=== PATIENT | female | born 1985 | race Caucasian/White ===

== ENCOUNTER → 2021-02-15 14:36 | Outpatient (BNVA) | payer OTHER, SELFPAY | PROVIDERS: PCP Physician Assistant Medical; Visit Provider Physician Assistant ==

== ENCOUNTER → 2021-02-17 09:05 | Outpatient (BNVA) | payer OTHER, SELFPAY | PROVIDERS: PCP Physician Assistant Medical; Visit Provider Surgery ==

== ENCOUNTER 2021-02-21 09:31 | Outpatient (REF) | payer OTHER, SELFPAY ==
--- NOTE | ~2021-02-21 | XR_ITS ---
EXAMINATION: XR CHEST CLINICAL INFORMATION: Morbid obesity. COMPARISON: None TECHNIQUE: 2 views of the chest were obtained. FINDINGS: The lungs are clear. The cardiomediastinal silhouette is normal in size. There is no pleural effusion or pneumothorax. No acute osseous abnormality. XR/XR chest 2V IMPRESSION: No acute cardiopulmonary findings.
--- NOTE | 2021-02-21 09:48 | ECG_ITS ---
Test Reason : E66.01 Blood Pressure : / mmHG Vent. Rate : 072 BPM Atrial Rate : 072 BPM P-R Int : 134 ms QRS Dur : 090 ms QT Int : 430 ms P-R-T Axes : 016 027 034 degrees QTc Int : 470 ms Normal sinus rhythm Normal ECG No previous ECGs available Referred By: Kal Tsai Electronically Signed By:Musa Castillo
[2021-02-21 10:42] LABS: MANUAL DIFF FLAG NO
[2021-02-21 10:59] LABS: White Blood Count 6.9 X10*3/uL (4.8-10.8)
[2021-02-21 11:00] LABS: Basophils Percent Auto 0.3 % (0-2); Eosinophils Absolute Auto 0.1 X10*3/uL (0.0-0.4); Eosinophils Percent Auto 0.9 % (0-4); Hematocrit 42.1 % (37-47); Imm Gran Abs Auto 0.01 X10*3/uL (0.00-0.03); Imm Gran Pct Auto 0.1 % (0.0-0.4); Lymphocytes Absolute Auto 1.7 X10*3/uL (1.2-4.9); Lymphocytes Percent Auto 24.5 % (20-40); Mean Corpuscular HGB Conc 33.3 g/dl (31.0-35.0); Mean Corpuscular Volume 90.1 fL (80-98); Mean Platelet Volume 10.4 fL (9.4-12.3); Monocytes Absolute Auto 0.4 X10*3/uL (0.1-1.2); Monocytes Percent Auto 6.3 % (2-11); Neutrophils Absolute Auto 4.7 X10*3/uL (2.0-8.3); Neutrophils Percent Auto 67.9 % (45-73); Platelet Count 338 X10*3/uL (160-400); Red Blood Count 4.67 X10*6/uL (4.20-5.50)
[2021-02-21 11:01] LABS: Estimated Average Glucose 94 mg/dL; Hemoglobin A1c % 4.9 %
[2021-02-21 11:26] LABS: Alanine Aminotransferase 10 U/L (0-31); Albumin Level 4.3 g/dL (3.5-5.0); Alkaline Phosphatase 50 U/L (39-117); Anion Gap 15 (12-20); Aspartate Amino Transferase 18 U/L (5-31); Bilirubin Total 0.9 mg/dL (0.0-1.0); Blood Urea Nitrogen 13 mg/dL (9-16); C Reactive Protein 1.85 mg/dL (< or = 0.50); Calcium 9.4 mg/dL (8.4-10.2); Carbon Dioxide 23 mmol/L (22-29); Chloride 103 mmol/L (96-108); Cholesterol 241 mg/dL; Estimated Glomerular Filt Rate > 60; Glucose Random 87 mg/dL (60-115); HDL Cholesterol 44 mg/dL; Iron 123 mcg/dL (30-160); LDL Cholesterol Calculated 178 mg/dl; Percent Iron Saturation 29 % (15-50); Potassium 4.1 mmol/L (3.3-5.1); Sodium 137 mmol/L (135-145); Total Iron Binding Capacity 422 mcg/dL (228-428); Total Protein 7.2 g/dL (6.5-8.0); Triglycerides 98 mg/dL; Unsaturated Iron Binding 299 ug/dL
[2021-02-21 11:50] LABS: Ferritin 117 ng/mL (10-122); TSH reflex Free T4 0.69 uIU/mL (0.32-4.0); Vitamin D 25-OH Total 33.5 ng/mL (>30)
[2021-02-21 12:06] LABS: Folate 17.4 ng/mL (> or = 4.0); Vitamin B12 484 pg/mL (200-900)
[2021-02-22 14:31] LABS: H Pylori Breath Test NOT DETECTED (NOT DETECTED)
[2021-02-22 14:56] LABS: Calcium (PTHI) 9.2 mg/dL (8.6-10.2); PTHI 40 pg/mL (14-64)
[2021-02-23 12:01] LABS: Insulin Level Total 7.5 uIU/mL
[2021-02-24 00:46] LABS: Zinc 79 mcg/dL (60-130)
[2021-02-26 11:42] LABS: Vitamin B1 8 nmol/L (8-30)
[2021-02-26 19:01] LABS: Vitamin A 50 mcg/dL (38-98)
== END 2021-02-21 09:32 | disposition home or self-care (01) ==
LOC: HO.XRAY 09:31
PROVIDERS: PCP Physician Assistant Medical; Visit Provider Surgery
DX: E66.01 Morbid (severe) obesity due to excess calories (principal); I10 Essential (primary) hypertension
CPT/HCPCS: 36415; 71046; 80053; 80061; 82306; 82607; 82728; 82746; 83013; 83036; 83525; 83540; 83970; 84425; 84443; 84590; 84630; 85025; 86140; 93005

== ENCOUNTER → 2021-03-09 07:07 | Outpatient (BNVA) | payer OTHER, SELFPAY | PROVIDERS: PCP Physician Assistant Medical; Visit Provider Surgery ==

== ENCOUNTER 2021-03-21 09:38 | Outpatient (REF) | payer OTHER, SELFPAY ==
--- NOTE | ~2021-03-21 | US_ITS ---
EXAMINATION: US COMPLETE ABDOMEN WITH LIVER ELASTOGRAPHY CLINICAL INFORMATION: Morbid obesity due to excess calories. COMPARISON: None TECHNIQUE: Real-time imaging of the abdominal viscera. Noninvasive ultrasound liver fibrosis assessment is performed using Cisco ElastPQ point quantification shear wave elastography (pSWE) with a C5-2 MHz transducer. Multiple elastography samples are obtained. FINDINGS: PANCREAS: Normal. The visualized pancreatic head and body are normal in appearance. The remainder of the pancreas is obscured from visualization by the overlying bowel gas. ABDOMINAL AORTA: The proximal, middle, and distal aortic segments are normal in caliber. INFERIOR VENA CAVA: Visualized portions are normal. LIVER: Normal. The liver demonstrates normal size, contour and echogenicity. No focal lesion or intrahepatic biliary duct dilatation. The right lobe measures 40.1 cm in length. The left lobe measures 10.3 cm in length. Portal flow is hepatopetal. Shear wave liver elastography median stiffness is 1.34 m/s (reference: Normal median stiffness is 1.3 m/s or less). IQR/median stiffness to assess sampling precision is 0.29 (reference: Good quality data set is IQR/median stiffness of 0.15 or less). GALLBLADDER: Normal. The gallbladder is physiologically distended without evidence of stones, sludge, polyps, wall thickening or pericholecystic fluid. COMMON BILE DUCT: Normal in caliber measuring 0.3 cm in diameter. RIGHT KIDNEY: Normal. No hydronephrosis. No renal calculi or focal parenchymal lesions. The kidney measures 12.5 cm in maximum dimension. LEFT KIDNEY: Normal. No hydronephrosis. No renal calculi or focal parenchymal lesions. The kidney measures 12.4 cm in maximum dimension. SPLEEN: Normal. The spleen measures 10.7 cm in maximum dimension. FREE FLUID: None. US/US abdomen comp w elastography IMPRESSION: 1. There is mild hepatic steatosis without focal lesion. The rest of the abdominal ultrasound is unremarkable. 2. Liver Elastography: Median liver stiffness measures 1.34 m/s suggestive of high probability normal. REFERENCE: Society of Radiologists in Ultrasound Liver Stiffness Thresholds (2019): LIVER STIFFNESS THRESHOLDS: *Liver Stiffness equal or less than 1.3 m/s: High probability of being normal. *Liver Stiffness less than 1.7 m/s: In the absence of other known clinical signs, rules out compensated advanced chronic liver disease. *Liver Stiffness 1.7-2.1 m/s: Suggestive of compensated advanced chronic liver disease but need further test for confirmation. *Liver Stiffness over 2.1 m/s: Rules in compensated advanced chronic liver disease. *Liver Stiffness over 2.4 m/s: Suggestive of clinically significant portal hypertension. QUALITY OF DATA SET: *IQR/Median value equal or less than 0.15 implies a quality data set. *IQR/Median value over 0.15 implies a poor quality data set. SIGNIFICANT CHANGE FROM PRIOR EXAM: Significant change if liver stiffness measurement is 10% or greater from prior exam. OTHER CONSIDERATIONS: The stage of liver fibrosis may be overestimated in the setting of acute hepatitis, liver inflammation, elevated liver function tests, hepatic vascular congestion, obstructive cholestasis, non-fasting state, and infiltrative diseases such as amyloidosis and lymphoma. In some patients with NAFLD, the liver stiffness thresholds for compensated advanced chronic liver disease may be lower. In causes other than viral hepatitis and NAFLD, liver stiffness thresholds are not well established.
--- NOTE | ~2021-03-21 | FL_ITS ---
EXAMINATION: XR GI SERIES CLINICAL INFORMATION: Morbid obesity. COMPARISON: None TECHNIQUE: Air contrast upper GI examination. FINDINGS: There is normal apposition of the vocal cords while saying E. There is normal elevation of the soft palate while saying candy. Patient swallowed thin and thick barium. Patient had some nausea and vomiting with thick contrast. No nasopharyngeal reflux or tracheal aspiration identified. There is normal esophageal motility. No hiatal hernia. No gastroesophageal reflux present including with water siphon test. The stomach demonstrates normal distensibility without evidence of abnormal mass or ulceration. No delay in gastric emptying. The duodenal bulb and sweep appear unremarkable. FLUOROSCOPY TIME: 1.9 minutes. DAP: 20.745 Gy-cm2. NUMBER OF IMAGES: 13. FL/FL upper GI series IMPRESSION: No significant abnormality identified.
== END 2021-03-21 09:39 | disposition home or self-care (01) ==
LOC: HO.US 09:38
PROVIDERS: Visit Provider Surgery
DX: Z01.818 Encounter for other preprocedural examination (principal); E66.01 Morbid (severe) obesity due to excess calories; I10 Essential (primary) hypertension; K21.9 Gastro-esophageal reflux disease without esophagitis
CPT/HCPCS: 74240; 76705; 76981

== ENCOUNTER → 2021-03-23 08:00 | Outpatient (BNVA) | payer OTHER, SELFPAY | PROVIDERS: PCP Physician Assistant Medical; Visit Provider Dietitian, Registered | DX: E66.9 Obesity, unspecified (principal); Z68.39 Body mass index [BMI] 39.0-39.9, adult | CPT/HCPCS: 97802 ==

== ENCOUNTER → 2021-04-20 07:14 | Outpatient (BNVA) | payer OTHER, SELFPAY | PROVIDERS: PCP Physician Assistant Medical; Visit Provider Surgery ==

== ENCOUNTER → 2021-05-11 14:40 | Outpatient (BNVA) | payer OTHER, SELFPAY | PROVIDERS: PCP Physician Assistant Medical; Visit Provider Surgery ==

== ENCOUNTER 2021-05-12 08:45 | Outpatient (REF) | payer OTHER, SELFPAY ==
[2021-05-12 09:06] LABS: MANUAL DIFF FLAG NO
[2021-05-12 10:11] LABS: Estimated Average Glucose 91 mg/dL; Hemoglobin A1c % 4.8 %
[2021-05-12 10:30] LABS: Basophils Percent Auto 0.3 % (0-2); Eosinophils Percent Auto 0.6 % (0-4); Hematocrit 44.4 % (37-47); Hemoglobin 14.9 g/dl (12.0-16.0); Imm Gran Abs Auto 0.01 X10*3/uL (0.00-0.03); Imm Gran Pct Auto 0.2 % (0.0-0.4); Lymphocytes Absolute Auto 1.6 X10*3/uL (1.2-4.9); Lymphocytes Percent Auto 25.1 % (20-40); Mean Corpuscular HGB Conc 33.6 g/dl (31.0-35.0); Mean Corpuscular Volume 89.3 fL (80-98); Monocytes Absolute Auto 0.5 X10*3/uL (0.1-1.2); Monocytes Percent Auto 7.4 % (2-11); Neutrophils Absolute Auto 4.2 X10*3/uL (2.0-8.3); Neutrophils Percent Auto 66.4 % (45-73); Platelet Count 274 X10*3/uL (160-400); Red Blood Count 4.97 X10*6/uL (4.20-5.50); White Blood Count 6.4 X10*3/uL (4.8-10.8)
[2021-05-12 10:38] LABS: Alanine Aminotransferase 23 U/L (0-31); Albumin Level 4.4 g/dL (3.5-5.0); Alkaline Phosphatase 60 U/L (39-117); Anion Gap 15 (12-20); Aspartate Amino Transferase 28 U/L (5-31); Blood Urea Nitrogen 10 mg/dL (9-16); C Reactive Protein 1.05 mg/dL (< or = 0.50); Calcium 9.4 mg/dL (8.4-10.2); Carbon Dioxide 22 mmol/L (22-29); Chloride 103 mmol/L (96-108); Cholesterol 206 mg/dL; Estimated Glomerular Filt Rate > 60; Glucose Random 78 mg/dL (60-115); HDL Cholesterol 39 mg/dL; LDL Cholesterol Calculated 149 mg/dl; Potassium 4.2 mmol/L (3.3-5.1); Sodium 136 mmol/L (135-145); Triglycerides 94 mg/dL
[2021-05-12 10:42] LABS: Prothrombin Time 11.8 SEC (9.9-13.0)
[2021-05-12 10:45] LABS: Partial Thromboplastin Time 35.4 SEC (24.1-38.0)
[2021-05-12 11:00] LABS: TSH reflex Free T4 1.04 uIU/mL (0.32-4.0)
[2021-05-14 04:08] LABS: Insulin 6 uU/mL (2-29)
== END 2021-05-12 08:46 | disposition home or self-care (01) ==
LOC: HO.LAB 08:45
PROVIDERS: PCP Physician Assistant Medical; Visit Provider Surgery
DX: E66.9 Obesity, unspecified (principal); Z68.38 Body mass index [BMI] 38.0-38.9, adult
CPT/HCPCS: 36415; 80053; 80061; 83036; 83525; 84443; 85025; 85610; 85730; 86140; 86850; 86900; 86901

== ENCOUNTER → 2021-05-14 09:02 | Outpatient (BNVA) | payer OTHER, SELFPAY | PROVIDERS: PCP Physician Assistant Medical; Visit Provider Physician Assistant ==

== ENCOUNTER 2021-05-17 11:45 | Inpatient (IN) | payer OTHER, SELFPAY ==
[2021-05-14 13:32] VITALS: BMI 36.8
--- NOTE | 2021-05-15 07:42 | MHC.SHP ---
Pre-Procedural Eval Section A Date of Service: 05/15/21 The patient is an INPATIENT: Yes The History & Physical has been completed within 30 days and I have reviewed it.: Yes Section B Chief Complaint: obesity Relevant Family History (Specify if Yes): No Relevant Social History: None Present Medications: None Medical History: No relevant PMH History of Previous Operations: No relevant previous surgery Allergies: Allergies Allergy/AdvReac Type Severity Reaction Status Date / Time No Known Allergies Allergy Verified 05/14/21 13:31 Review of Systems Sugical H&P ROS: Negative: Constitution, Cardiovascular, Respiratory, Neurological, Psychiatric, Hem-Onc, Allergic/Immunologic, Gastrointestinal, Genitourinary, Musculoskeletal, Integumentary, Endocrine and Eyes/Ears/Nose/Throat Exam Surgical H&P Exam: Normal: HEENT, Normal: Heart, Normal: Lungs, Normal: Extremities, Normal: Abdomen, Normal: Skin and Normal: Neurological Plan Diagnosis/Plan: Unchanged I have reviewed the history and physical and performed a pertinent physical examination on my patient. No changes have occurred unless specified.
--- NOTE | 2021-05-16 12:16 | P.CONAN_ITS ---
Documented by User: Sho Garsia NP 05/16/21 12:17 HPI - Anesthesia Eval Consult details Narrative: 35yo F for Gastrectomy Sleeve, EGD, Poss Diaphragmatic Hernia, Poss Ventral Hernia, Poss open PMFSH Active Problems Active Problems: All Active Problems (Updated 05/14/21 @ 13:37 by Marilou Lala, RN) Hypertension (Acute) Adjustment disorder, unspecified (Acute) Obesity (Acute) BMI 39.0-39.9,adult (Acute) BMI 38.0-38.9,adult (Acute) Morbid obesity (Acute) Past Medical History Medical History (Updated 05/14/21 @ 13:37 by Marilou Lala RN) COVID-19 vaccine series completed HTN (hypertension) Morbid obesity Family History Family History (Updated 02/16/21 @ 15:23 by Rashid Hines Linda) Mother Hypertension Father Hypertension Sister No problems noted. Son No problems noted. Daughter No problems noted. Surgical History Surgical History (Updated 05/14/21 @ 13:30 by Marilou Lala RN) History of tonsillectomy Hx of section Hx of cone biopsy of cervix Hx of wisdom tooth extraction Social History Social History (Updated 02/16/21 @ 15:23 by JOSE Quiñonez) Are you a primary healthcare project manager to a significant other at home: No Do you presently have visiting nurse or other home services: No Alcohol intake: current Alcohol intake frequency: holidays/special occasions only Patient Tobacco Use Status: Never used Tobacco Use of substances other than those prescribed or required for medical reasons: No Have you been hit, kicked, punched, or otherwise hurt by someone within the past year? If so, by whom?: No Are you DNR?: No Advance Directives: No Advance Directives Information Provided: No (mailed info) Advance Directives on File: No Recently lost weight without trying: No How much weight loss: 24-33 pounds Eating poorly because of decreased appetite: No Nutrition screen score: 3 Nutrition Risks: No Nutritional Risk Patient : No FDLMP: 04/27/21 Meds Allergies Allergy/AdvReac Type Severity Reaction Status Date / Time No Known Allergies Allergy Verified 05/14/21 13:31 Home Medications Medication Instructions Recorded Confirmed Last Taken Type L norgest/E estradiol-E estrad 1 tab PO DAILY 02/16/21 05/14/21 05/11/21 History 0.15 mg-30 mcg (84)/10 mcg(7) tabs,3mos (Seasonique) Exam Exam Date and Time: May 16, 2021 1216 Height,Weight and Vital Signs: Height 5 ft 6 in Weight 103.419 kg Pertinent Lab Results Pertinent Lab Results: Laboratory Tests 05/12/21 09:00 Blood Type O Positive Antibody Screen NEGATIVE Laboratory Tests 05/12/21 05/12/21 09:00 09:00 WBC 6.4 Hgb 14.9 Hct 44.4 Plt Count 274 Sodium 136 Potassium 4.2 Chloride 103 Carbon Dioxide 22 BUN 10 Creatinine 0.66 Narrative Narrative: EKG 02/2021 Vent. Rate : 072 BPM ? ? Atrial Rate : 072 BPM ?? P-R Int : 134 ms? QRS Dur : 090 ms ? ? QT Int : 430 ms ? ? ? P-R-T Axes : 016 027 034 degrees ?? QTc Int : 470 ms ? Normal sinus rhythm Normal ECG No previous ECGs available Assessment and Plan Assessment Anesthesia Assessment: Chart Reviewed Documented by User: Cyndi Lyman MD 05/17/21 12:41 PMFSH Active Problems Active Problems: All Active Problems (Updated 05/14/21 @ 13:37 by Marilou Lala RN) Hypertension (Acute) Adjustment disorder, unspecified (Acute) Obesity (Acute). Denies h/o BERNICE BMI 39.0-39.9,adult (Acute) BMI 38.0-38.9,adult (Acute) Morbid obesity (Acute) Past Medical History Medical History (Updated 05/14/21 @ 13:37 by Marilou Lala RN) COVID-19 vaccine series completed HTN (hypertension) Morbid obesity Family History Family History (Updated 02/16/21 @ 15:23 by JOSE Quiñonez) Mother Hypertension Father Hypertension Sister No problems noted. Son No problems noted. Daughter No problems noted. Family history of problems with anesthesia: No Surgical History Surgical History (Updated 05/14/21 @ 13:30 by Marilou Lala RN) History of tonsillectomy Hx of section Hx of cone biopsy of cervix Hx of wisdom tooth extraction History of Problems with Anesthesia: No Social History Social History (Updated 02/16/21 @ 15:23 by Rashid Hines Linda) Are you a primary healthcare project manager to a significant other at home: No Do you presently have visiting nurse or other home services: No Alcohol intake: current Alcohol intake frequency: holidays/special occasions only Patient Tobacco Use Status: Never used Tobacco Use of substances other than those prescribed or required for medical reasons: No Have you been hit, kicked, punched, or otherwise hurt by someone within the past year? If so, by whom?: No Are you DNR?: No Advance Directives: No Advance Directives Information Provided: No (mailed info) Advance Directives on File: No Recently lost weight without trying: No How much weight loss: 24-33 pounds Eating poorly because of decreased appetite: No Nutrition screen score: 3 Nutrition Risks: No Nutritional Risk Patient : No FDLMP: 04/27/21 Meds Allergies Allergy/AdvReac Type Severity Reaction Status Date / Time No Known Allergies Allergy Verified 05/14/21 13:31 Home Medications Medication Instructions Recorded Confirmed Last Taken Type L norgest/E estradiol-E estrad 1 tab PO DAILY 02/16/21 05/14/21 05/11/21 History 0.15 mg-30 mcg (84)/10 mcg(7) tabs,3mos (Seasonique) Exam Height,Weight and Vital Signs: Height 5 ft 6 in Weight 103.419 kg Vital Signs Temp Pulse Resp BP Pulse Ox 05/17/21 11:25 97.9 F 88 16 158/86 H 97 Pertinent Lab Results Pertinent Lab Results: Laboratory Tests 05/12/21 09:00 Blood Type O Positive Antibody Screen NEGATIVE Laboratory Tests 05/12/21 05/12/21 09:00 09:00 WBC 6.4 Hgb 14.9 Hct 44.4 Plt Count 274 Sodium 136 Potassium 4.2 Chloride 103 Carbon Dioxide 22 BUN 10 Creatinine 0.66 Laboratory Results - last 24 hr 05/12/21 05/17/21 05/17/21 09:00 11:18 11:18 Urine Test NEGATIVE COVID-19 (RAHEEM) Negative COVID-19 Clin Com See Note Blood Type O Positive Airway Mallampati Class: II TM Dist: >3cm Neck ROM: Full Loose/Missing/Broken Teeth: Yes (1 extraction back top right) Heart: RRR Lungs: CTAB Assessment and Plan Assessment Anesthesia Assessment: Anesthesia Plan Discussed Final Anesthetic Review Family History of Problems with Anesthesia: No History of Problems with Anesthesia: No NPO: Yes ASA Class: III Final Preanesthetic Review: No Changes in Pt Med Stat, Meds/Allgs Chart Reviewed, Consent Obtained/Reviewed and Anes Risks/Benef Reviewed Patient Risk: Intermediate Procedure Risk: Intermediate Anesthetic Plan Anesthetic Plan: GA Disposition: Standard PACU and Inp. Admit - Standard Bed
[2021-05-17] VITALS (11 sets, daily range): BP systolic 140–158; BP diastolic 74–94; PULSE 65–88; RESP 12–18; TEMP 36.1–37; O2SAT 97–99
[2021-05-17] MEDS: Lactated Ringers 1,000 ML 100 ML IVCONT ×2 (11:47→16:06)
[2021-05-17] MEDS: Lactated Ringers 1,000 ML 999 ML IV (11:50)
[2021-05-17 12:00] LABS: UPreg QC Valid YES; Urine Pregnancy NEGATIVE (NEGATIVE)
[2021-05-17 12:10] LABS: COVID-19 Test Negative (Negative); IDNOW Serial# 9DD0AD1C
--- NOTE | 2021-05-17 12:46 | PM.PNGS ---
Subjective Subjective Date of Service: 05/18/21 Interval history: Patient has mild incisional pain, but was able to ambulate and use the incentive spirometer. She is tolerating phase 1 bariatric diet. Had some nausea and dry heaving earlier Physical Exam Vital Signs: Vital Signs: Last Vital Signs Temp 97.9 F 05/17/21 11:25 Pulse 88 05/17/21 11:25 Resp 16 05/17/21 11:25 BP 158/86 H 05/17/21 11:25 Pulse Ox 97 05/17/21 11:25 Body Mass Index 36.8 GI: Inspection: Yes normal to inspection and Yes incision (clean, dry and intact) Extrem: Right lower extremity: normal to inspection (no calf tenderness) Left lower extremity: normal to inspection (no calf tenderness) Procedures Date of Service Date of Service: 05/18/21 Progress Note: A&P Assessment and plan (1) Obesity: Status: Acute Assessment and Plan: s/p laparoscopic sleeve gastrectomy, lysis of adhesions repair of diaphragmatic hernia, and gastropexy Doing well Check am labs. If OK, will discharge home? (2) BMI 38.0-38.9,adult: Status: Acute (3) Hypertension: Status: Acute (4) Steatosis, liver: Status: Acute (5) S/P laparoscopic sleeve gastrectomy: Status: Acute Fall Risk Details Current Medications: Current Medications Fentanyl (Fentanyl Citrate/Pf 100 Mcg/2 Ml Vial) 25 mcg IVPUSH Q5M PRN; Protocol PRN Reason: Pain, Moderate (Pain Scale 4-6 Hydromorphone HCl (Hydromorphone Hcl 0.5 Mg/0.5 Ml Syringe) 0.25 mg IVPUSH Q5M PRN; Protocol PRN Reason: Pain, Severe (Pain Scale 7-10) Lactated Ringer's (Lr) 1,000 mls @ 100 mls/hr IVCONT .Q10H MIGUE Last Admin: 05/17/21 11:47 Dose: 100 mls/hr Documented by: Promethazine HCl 6.25 mg/ (Sodium Chloride) 50.25 mls @ 201 mls/hr IV ONCE PRN PRN Reason: Nausea and Vomiting Ondansetron HCl (Ondansetron Hcl 4 Mg/2 Ml Vial) 4 mg IVPUSH ONCE PRN PRN Reason: Nausea and Vomiting Time Spent With Patient Time: Total time spent is greater than 50% in coordination of care (as documented) at patient's floor/unit and/or counseling patient: Time with patient: less than 15 minutes Quality Stroke Does the patient have a stroke diagnosis?: No VTE Prior VTE?: No VTE Risk Level:: Surgical - moderate VTE Device Contraindication: N/A - Device Ordered VTE Drug Contraindication: Treatment Not Indicated
--- NOTE | 2021-05-17 12:48 | P.BOP_ITS ---
Brief Operative Note Date of Service: 05/17/21 Pre-op diagnosis: Severe obesity and comorbidities (see below) Post-op diagnosis: same Procedure: INITIAL PATIENT BMI ON PRESENTATION AT OUR OFFICE: 41.7 kg/m2 LAST BMI BEFORE SURGERY: 38.1 kg/m2 COMORBIDITIES: hypertension, liver steatosis The patient participated in an intensive weekly lifestyle ?intervention and exercise program during which the patient ?has lost between the initial office visit and the last preoperative visit 24.2lbs, or 9.36% of initial actual body weight. The patient met the BMI-criteria for bariatric surgery based on the BMI on initial presentation. The patient should not be penalized for achieving such weight loss because ?it is not sustainable long-term without surgical intervention and it was achieved in preparation for bariatric surgery ?under my direction and based on my published research ([email or web address] and? [email or web address]/[email or web address])47830-X/pdf ) ?that a 10% p reoperative weight loss improves long-term weight loss after surgery and reduces perioperative complications.? Insurance carriers such as [facility] have endorsed my recommendations ?and have included in their policies criteria to include a 10% preoperative weight loss requirement. PROCEDURE: Esophago-gastroscopy, laparoscopic repair of incarcerated diaphragmatic hernia, laparoscopic lysis of adhesions, laparoscopic sleeve gastrectomy and laparoscopic gastropexy INDICATIONS: This is a 35 year-old female who was electively scheduled for laparoscopic, possibly open sleeve gastrectomy. The risks and complications of the procedure were discussed with the patient in advance, particularly the possibility of ; pulmonary embolism; staple line leak; bleeding; GERD; cardiac, pulmonary, or renal complications; as well as long-term problems such as insufficient weight loss, vitamin deficiency, strictures, or ulcers. The patient understood all the risks, and was in agreement to proceed with surgery. DESCRIPTION OF PROCEDURE: After informed consent was obtained from the patient, the patient was given preoperative antibiotics, and was transferred to the operating room. After successful induction of general anesthesia, pneumatic compressive devices were placed on both lower extremities. An upper endoscopy was performed next. The oropharynx and esophagus appeared to be within normal limits. There was no diaphragmatic hernia present consistent with the findings of the preoperative upper GI. The stomach was entered. Then after all fluid and air were suctioned and the stomach was fully decompressed, the scope was withdrawn and secured in the mid esophagus. The patient was then prepped and draped in the usual sterile manner, and abdominal access was established at the right upper quadrant with the Cosmo technique. A 12 mm blunt port was inserted, and the abdomen was insufflated with CO2 to a pressure of 15 mmHg. Under direct visualization, additional ports were placed, specifically two 5 mm Versi-step ports to the left upper quadrant, and a 5 mm Versi-Step port to the right upper quadrant. 1% lidocaine plain was used to infiltrate all port sites as well as all fascia defects. Following that, the patient was placed in a steep reverse Trendelenburg position. An additional 5 mm port was placed to the right flank for the Mediflex retractor that was used to retract the left lobe of the liver. The gastro-esophageal fat pad was opened with the ultrasonic device (Thunderbeat, Olympus) and the anterior esophagus and hiatus were exposed. The angle of His was opened with the ultrasonic device the fundus of the stomach from any diaphragmatic and splenic attachments. I then opened the gastrocolic ligament between the transverse colon and the greater curvature of the stomach with the ultrasonic device to enter the lesser sac and facilitate the ligation of the short gastric vessels. I started at a mid-point along the greater curvature and using the Thunderbeat, all short gastric vessels were divided all the way to the angle of His until the left tamara was completely dissected at its entirety. I then divided the gastro-colic ligament distally to a distance of about 3-4 cm proximal to the esophagus. The stomach was then divided transversely with one Endo KEVIN-45 purple, one KEVIN- 45 orange and three KEVIN-60 articulating orange loads using the AEON stapler and loads. Every effort was made that the gastric sleeve had a tubular shape and an even caliber throughout. Once the sleeve resection was completed, the staple line of the gastric sleeve was reinforced with Hemoclips. The resected stomach was retrieved without difficulty from the Cosmo port. A gastropexy was then performed in order to prevent postoperative GERD and partial gastric volvulus. Several interrupted 2.0 Surgidac sutures were placed between the sleeve's staple line and the previously divided greater omentum and gastro-colic ligament using the Endo-Stitch device. ?An upper endoscopy was performed. There was no narrowing at the GE junction. The scope was easily advanced all the way to the pylorus which was clearly visualized. There was no narrowing anywhere and the sleeve's caliber was even throughout. The sleeve's staple line was inspected and there was no evidence of ischemia, bleeding or dehiscence. At that point the gastroscope was withdrawn from the patient?s mouth while we were decompressing the bowel and the stomach from any remaining air. I looked into the lesser sac to see how the sleeve was situating and it was situating well. There was no bleeding from the staple line, spleen, or short gastric vessels. The Mediflex retractor was removed, and the undersurface of the liver was inspected and there was no bleeding. The patient was placed in supine position. I closed the fascial defect of the 12 mm port site with a figure of eight #1 Polysorb suture. Then 100 cc 0.25 % Marcaine plain with 10 mg of Dexamethasone were used to infiltrate the fascial closure as well as all skin incisions. At this point, the abdomen was deflated, all ports were removed under direct vision, and no bleeding was noted from any of the port sites. The skin incisions were irrigated with saline and were closed with 4-0 absorbable monofilament sutures. Steri-Strips and OpSites were used to cover all incisions. The patient was extubated and was transferred in stable condition to the recovery room for further care. I was present and performed all walton parts of the procedure. Lalit was the special education assistant. There were no residents to assist with this case. Doug Tsai MD, PhD, FACS Surgeon: Kal Tsai MD Anesthesia: GETA, local and other (TAP block) Was an Mold Puller used for this Procedure?: No Mold Puller: Katheryn Cohn Estimated blood loss (mL): 10 Urine output (mL): 0 (No Howard to record) Pathology: other (Stomach) Condition: stable Disposition: PACU
--- NOTE | 2021-05-17 15:05 | P.DS_ITS ---
DS: Providers Provider Date of Service: 05/18/21 Date of admission: 05/17/21 11:45 Primary care physician: Unknown Physician DS: Diagnosis Discharge Diagnosis (1) Obesity: Status: Acute (2) BMI 38.0-38.9,adult: Status: Acute (3) Hypertension: Status: Acute (4) Steatosis, liver: Status: Acute DS: Summary Hospital Course Hospital Course: ADMITTING DIAGNOSIS: morbid obesity DISCHARGE DIAGNOSIS: same, s/p laparoscopic sleeve gastrectomy PAST SURGICAL HISTORY: section, cone biopsy PROCEDURE: upper endoscopy, laparoscopic sleeve gastrectomy and gastropexy DISCHARGE SUMMARY: History of Present Illness: The patient is a 35 year-old woman with a BMI of 41.7 kg/m2 and associated co- morbidities as described above. The patient had extensive work-up,lost 24.2 lbs preoperatively and was electively scheduled for laparoscopic, possible open sleeve gastrectomy and gastropexy. Risks and complications of the surgery were discussed with the patient in advance, particularly the possibility of , pulmonary embolism, anastomotic leak, bleeding, bowel injury, GERD, cardiac, renal or pulmonary complications. The patient understood all the risks and was in agreement with the surgical plan. Hospital Course: The patient underwent an uneventful laparoscopic sleeve gastrectomy with gastropexy on the day of admission. Postoperatively, the patient was transferred to the surgical floor. The patient received IV Acetaminophen and IV dilaudid for pain control. Patient was started on bariatric phase 1 diet POD #0. On postoperative day one, the patient was feeling well without nausea, vomiting, fevers, or tachycardia. The patient had some mild incisional pain and the abdomen was soft. On the morning of postoperative day one, the patient was continued on 1 ounce of water or ice every half hour. During the day, the patient did fairly well, having some incisional pain, but able to ambulate adequately and to tolerate liquids well. Since the patient is doing well, we decided that the patient was ready to be discharged. The patient was given instructions to follow-up with me next week and to call my office for any fever over 101, persistent abdominal pain, nausea, vomiting, GERD, symptoms of DVT such as calf tenderness, or leg swelling, or pulmonary embolism such as chest pain or shortness of breath. The patient was also instructed to drink 40-60 ounces of liquids per day using the 1-ounce cups. The patient had been given prescriptions for Tylenol for pain, Zofran prn for nausea, and pantoprazole and carafate previously. The patient was encouraged to ambulate and use the incentive spirometer. The patient was allowed to shower, but no baths, and encouraged to stay active at home. All of these instructions were given to the patient personally. All questions were answered and the patient understood all instructions, the instructions were also given to the patient in print. Time Spent with Patient Time attestation: Total time spent providing and/or coordinating discharge services: Discharge coordination time: Less than 30 minutes Quality: Stroke Does the patient have a stroke diagnosis?: No Physical Exam Vital Signs: Vital Signs: Last Vital Signs Temp 97.9 F 05/17/21 11:25 Pulse 88 05/17/21 11:25 Resp 16 05/17/21 11:25 BP 158/86 H 05/17/21 11:25 Pulse Ox 97 05/17/21 11:25 Body Mass Index 36.8 DS: Data Data Completed and Pending Pending studies at discharge: Pending at discharge 05/17/21 14:11 Surgical [PTH] Routine Labs on day of discharge: Laboratory Results - last 24 hr 05/17/21 05/17/21 11:18 11:18 Urine Test NEGATIVE COVID-19 ([facility]) Negative COVID-19 Clin Com See Note Discharge Plan Discharge Anticipated Discharge Date/Time: 05/18/21 12:03 Patient Disposition: Home, Self-Care Discharge Diagnosis: s/p sleeve gastrectomy Referrals: Physician,Unknown J [Primary Care Provider] - 1 Week Discharge Medications: Continued pantoprazole 40 mg tablet,delayed release (DR/EC) 40 mg PO DAILY Qty: 30 RF: 2 sucralfate 100 mg/mL suspension 10 ml PO BID Qty: 400 RF: 2 ondansetron HCl [Zofran] 4 mg tablet 4 mg PO Q12H Qty: 20 RF: 0 Held L norgest/e.estradiol-e.estrad [Seasonique] 0.15 mg-30 mcg (84)/10 mcg (7) tablets,dose pack,3 month 1 tab PO DAILY RF: 0 Hold Instructions: Discuss restart with Dr Quin Ruvalcaba polyethylene glycol 3350 [Miralax] 17 gram powder in packet 17 g PO DAILY Qty: 14 RF: 0 Discharge Orders: Discharge Order (Routine); Ordered 05/18/21 Ordered By: Kal Tsai Diet: other Activity on Discharge: No heavy lifting Stand Alone Forms: Patient Portal Discharge page Care Plan Goals: weight loss Health Concerns: morbid obesity Plan of Treatment: No tub baths, sex or returning to work until discussed at first post op appointment. No exercise, alcohol, tobacco or illegal drug use. Continue to use incentive spirometer hourly while awake. Walk in home for 5- 10 minutes every 2 hours during the first week. Continue phase 1 diet today and start phase 2 diet tomorrow morning. Follow all instructions in the bariatric handbook and call with any questions. 1. Please call your doctor or come back to the emergency room should any new symptoms arise. 2. You will receive a courtesy call from [facility] 24-48 hours after discharge. 3. Activity: abstain from alcohol, practice limited stair climbing, no bending, no driving, no exercise, no illicit substances, no lifting, no sex, no tub bath, no work. 4. Diet: continue as discussed with Dr. Tsai. 5. Dressing Change/Wound Care: Your incision is covered by surgical glue. If the area is tender, you may apply an ice pack for short intervals (no more than 20 minutes on, followed by at least 20 minutes off). Do not apply heat. Do not use creams, lotions, or topical antibiotics unless instructed to do so by your surgeon. These can cause infection or allergic reaction. 6. Call your doctor if: - Your temperature exceeds 101.5 F - You experience excessive pain or swelling - You have an unexpected reaction to medication - You have excessive bleeding - You experience continued vomiting/nausea - Your incision begins to separate - Your incision shows signs of infection such as increased redness, swelling, excessive pain, heat, or drainage (light blood or clear fluid is normal) 7. General instructions: No lifting greater than 5 lbs for the next 4 weeks[address] within 24 hours of taking narcotic pain medications. If you do not move your bowels in the next 2 days, please take milk of magnesia over the counter. Please follow the post op diet and do not advance your diet until you are seen in the office in about 2 weeks. Please walk around your home every hour or two to prevent blood clots from forming in your legs. You do not need to wake from sleeping to walk. Please sleep in a bed or couch to prevent kinking at the hips and knees. Please take your incentive spirometer (your lung agricultural specialist) home with you and use it for the next few days to prevent pneumonias. You may shower, no hot tubs, baths or swimming pools. Please call the office with any questions or concerns such as increasing abdominal pain, fever, chills, shortness of breath, chest pain, leg pain or swelling, or redness or drainage from your incisions. Please stay on stage 3 diet which includes sugar free clear liquids such as ice pops and jello and broth and crystal light. Avoid all carbonation. Please drink 3 protein shakes with at least 25-30 grams of protein daily or 3 of the Celebrate 4:1 shakes which can be purchased in our office. The Celebrate shakes have all of the bariatric vitamins you need if you consume these shakes. If you are drinking other protein shakes, you will need to purchase the Celebrate multivitamins and calcium that we provide in the office (they will provide all the vitamins you need). Please make sure you are consuming at least 40-60 ounces of water in addition to your 3 protein shakes daily. Do not hesitate to contact the office with any questions at . The patient's medical history has been reviewed and they are considered low risk for post op DVT and therefore DVT prophylaxis is not considered necessary. Travel after surgery was reviewed. The patient has not disclosed any travel plans during the first 30 days after surgery and they have been advised that within the first 30 days after surgery any bus, plane, train or car travel over 2 hours in duration is contraindicated due to the possibility of developing blood clots from immobility. Any travel, needs to include periods of ambulation of 10 minutes in duration every 2 hours. The patient was instructed to discuss any plans for travel during this period with their bariatric surgeon. Assessment: stable post op sleeve gastrectomy Discharge Date/Time: 05/18/21 12:37
[2021-05-17 15:32] LABS: Hematocrit 41.7 % (37-47); Hemoglobin 14.2 g/dl (12.0-16.0)
[2021-05-17] MEDS: Famotidine/PF 20 MG/2 ML VIAL IVPUSH ×2 (15:34→20:58)
[2021-05-17 15:46] LABS: Anion Gap 19 (12-20); Blood Urea Nitrogen 7 mg/dL (9-16); Calcium 8.9 mg/dL (8.4-10.2); Carbon Dioxide 18 mmol/L (22-29); Chloride 103 mmol/L (96-108); Estimated Glomerular Filt Rate > 60; Glucose Random 89 mg/dL (60-115); Potassium 4.3 mmol/L (3.3-5.1); Sodium 136 mmol/L (135-145)
[2021-05-17] MEDS: Metoclopramide HCl 10 MG/2 ML VIAL IVPUSH (16:19)
[2021-05-17] MEDS: ondansetron HCL 4 MG/2 ML VIAL IVPUSH (19:43)
[2021-05-17] MEDS: ceFAZolin Sodium/Dextrose,Iso 2 GM/50 ML PIGGYBACK IV (19:53)
[2021-05-17] MEDS: 0.9 % Sodium Chloride Flush 3 ML SYRINGE IVFLUSH (20:59)
[2021-05-18] MEDS: Lactated Ringers 1,000 ML 100 ML IVCONT (01:31)
[2021-05-18 03:54] VITALS: BP 143/82; PULSE 73; RESP 18; TEMP 36.8; O2SAT 97
[2021-05-18] MEDS: ondansetron HCL 4 MG/2 ML VIAL IVPUSH (05:11)
[2021-05-18 06:24] LABS: MANUAL DIFF FLAG NO
[2021-05-18 06:29] LABS: Basophils Percent Auto 0.1 % (0-2); Hematocrit 39.4 % (37-47); Hemoglobin 13.3 g/dl (12.0-16.0); Imm Gran Abs Auto 0.03 X10*3/uL (0.00-0.03); Imm Gran Pct Auto 0.3 % (0.0-0.4); Lymphocytes Absolute Auto 1.1 X10*3/uL (1.2-4.9); Lymphocytes Percent Auto 9.8 % (20-40); Mean Corpuscular HGB Conc 33.8 g/dl (31.0-35.0); Mean Corpuscular Hemoglobin 30.4 pg (27.0-33.0); Mean Platelet Volume 10.7 fL (9.4-12.3); Monocytes Absolute Auto 0.9 X10*3/uL (0.1-1.2); Monocytes Percent Auto 8.4 % (2-11); Neutrophils Percent Auto 81.4 % (45-73); Platelet Count 267 X10*3/uL (160-400); Red Blood Count 4.38 X10*6/uL (4.20-5.50); Red Cell Distribution Width 13.1 % (11.0-16.0); White Blood Count 11.1 X10*3/uL (4.8-10.8)
[2021-05-18 06:47] LABS: Anion Gap 16 (12-20); Blood Urea Nitrogen 4 mg/dL (9-16); Carbon Dioxide 19 mmol/L (22-29); Chloride 104 mmol/L (96-108); Creatinine Clr Calc Pharmacy 140.8; Estimated Glomerular Filt Rate > 60; Glucose Random 118 mg/dL (60-115); Potassium 4.5 mmol/L (3.3-5.1); Sodium 134 mmol/L (135-145)
[2021-05-18] MEDS: Famotidine/PF 20 MG/2 ML VIAL IVPUSH (07:38)
[2021-05-18] MEDS: 0.9 % Sodium Chloride Flush 3 ML SYRINGE IVFLUSH (07:39)
[2021-05-18] MEDS: Metoclopramide HCl 10 MG/2 ML VIAL IVPUSH (07:50)
[2021-05-18 07:53] VITALS: BP 145/87; PULSE 61; RESP 18; TEMP 36.5; O2SAT 99
--- NOTE | 2021-05-18 08:47 | MHC.CM.PN ---
EMR REVIEWED, PT ADMITTED S/P LAP SLEEVE GASTRECTOMY, CM MET W/PT WHO IS A&OX4, PT REPORTS SHE LIVES W/ AND 2 SMALL CHILDREN, PT IS INDEPENDENT, NO DME AND NO HOME SERVICES, PT DOES NOT ANTICIPATE ANY NEEDS UPON D/C, PT REPORTS SHE DOES NOT SEE HER PCP AND SEES A DAINA MOROCHO AT PCP'S OFFICE, PT DOES NOT RECALL PCP'S NAME, PT PROVIDED INFORMATION ON HCP AND PT DECLINING TO COMPLETE. D/C PLAN: HOME SELF-CARE, TO TRANSPORT
--- NOTE | 2021-05-18 12:12 | HO.POSTANES ---
Post Anesthesia Evaluation Post Anesthesia Evaluation Vital Signs: Vital Signs Temp Pulse Resp BP Pulse Ox 05/18/21 07:53 97.7 F 61 18 145/87 H 99 05/18/21 03:54 98.2 F 73 18 143/82 H 97 Anesthesia: General Endotracheal-GETA Mental Status: Awake Pain Control: Satisfactory Nausea/Vomiting: None Hydration: Adequate Anesthesia-Related Issues: No Anes. Related Issues
== END 2021-05-18 12:37 | disposition home or self-care (01) | DRG 621 ==
LOC: HO.SSSA 11:47 → HO.S3 15:04
PROVIDERS: Nurse Practitioner; Physician Assistant; Admitting Provider Surgery; Visit Provider Surgery
PROC: 0DB64Z3 Excision of Stomach, Percutaneous Endoscopic Approach, Vertical (ICD-10-PCS; CPT 43845; principal; 2021-05-17 12:50)
DX: E66.01 Morbid (severe) obesity due to excess calories (principal); Z68.38 Body mass index [BMI] 38.0-38.9, adult; I10 Essential (primary) hypertension; K76.0 Fatty (change of) liver, not elsewhere classified; Z20.822 Contact with and (suspected) exposure to COVID-19; Z79.899 Other long term (current) drug therapy
CPT/HCPCS: 36415; 80048; 81025; 85014; 85018; 85025; 86850; 86900; 86901; 87635; 88307; 88342; 99024; A4649; J0131; J0690; J1100; J1170; J2250; J2370; J2405; J2550; J2765; J3010

== ENCOUNTER → 2021-05-23 09:11 | Outpatient (BNVA) | payer OTHER, SELFPAY | PROVIDERS: PCP Physician Assistant Medical; Visit Provider Surgery ==

== ENCOUNTER → 2021-06-25 07:54 | Outpatient (BNVA) | payer OTHER, SELFPAY | PROVIDERS: PCP Physician Assistant Medical; Visit Provider Surgery ==

== ENCOUNTER → 2021-07-26 08:07 | Outpatient (BNVA) | payer OTHER, SELFPAY | PROVIDERS: PCP Physician Assistant Medical; Visit Provider Physician Assistant Surgical ==

== ENCOUNTER 2021-08-09 09:31 | Outpatient (REF) | payer OTHER, SELFPAY ==
[2021-08-09 10:13] LABS: MANUAL DIFF FLAG NO
[2021-08-09 10:47] LABS: Basophils Percent Auto 0.2 % (0-2); Eosinophils Absolute Auto 0.1 X10*3/uL (0.0-0.4); Eosinophils Percent Auto 1.2 % (0-4); Hematocrit 42.3 % (37.0-47.0); Hemoglobin 14.2 g/dl (12.0-16.0); Lymphocytes Absolute Auto 1.5 X10*3/uL (1.2-4.9); Lymphocytes Percent Auto 26.8 % (20-40); Mean Corpuscular HGB Conc 33.6 g/dl (31.0-35.0); Mean Corpuscular Hemoglobin 30.8 pg (27.0-33.0); Mean Corpuscular Volume 91.8 fL (80.0-98.0); Mean Platelet Volume 10.9 fL (9.4-12.3); Monocytes Absolute Auto 0.4 X10*3/uL (0.1-1.2); Monocytes Percent Auto 7.8 % (2-11); Neutrophils Absolute Auto 3.6 x10*3/uL (2.0-8.3); Platelet Count 243 X10*3/uL (160-400); Red Blood Count 4.61 X10*6/uL (4.20-5.50); Red Cell Distribution Width 14.4 % (11.0-16.0); White Blood Count 5.6 X10*3/uL (4.8-10.8)
[2021-08-09 10:58] LABS: Estimated Average Glucose 88 mg/dL; Hemoglobin A1c % 4.7 %
[2021-08-09 11:12] LABS: Alanine Aminotransferase 18 U/L (0-31); Albumin Level 4.1 g/dL (3.5-5.0); Alkaline Phosphatase 50 U/L (39-117); Anion Gap 10 (12-20); Aspartate Amino Transferase 17 U/L (5-31); Bilirubin Total 1.1 mg/dL (0.0-1.0); Blood Urea Nitrogen 14 mg/dL (9-16); C Reactive Protein 0.29 mg/dL (< or = 0.50); Calcium 9.3 mg/dL (8.4-10.2); Carbon Dioxide 26 mmol/L (22-29); Chloride 106 mmol/L (96-108); Cholesterol 172 mg/dL; Estimated Glomerular Filt Rate > 60; Glucose Random 84 mg/dL (60-115); HDL Cholesterol 42 mg/dL; Iron 116 mcg/dL (30-160); LDL Cholesterol Calculated 119 mg/dl; Percent Iron Saturation 41 % (15-50); Sodium 138 mmol/L (135-145); Total Iron Binding Capacity 282 mcg/dL (228-428); Total Protein 6.5 g/dL (6.5-8.0); Triglycerides 55 mg/dL; Unsaturated Iron Binding 166 ug/dL
[2021-08-09 11:39] LABS: Ferritin 148 ng/mL (10-122); Insulin 5 uU/mL (2-29); TSH reflex Free T4 0.99 uIU/mL (0.32-4.0); Vitamin D 25-OH Total 38.5 ng/mL (>30)
[2021-08-09 11:45] LABS: Folate 13.2 ng/mL (> or = 4.0); Vitamin B12 716 pg/mL (200-900)
[2021-08-13 13:31] LABS: Calcium (PTHI) 9.4 mg/dL (8.6-10.2); PTHI 42 pg/mL (14-64)
[2021-08-14 02:11] LABS: Zinc 73 mcg/dL (60-130)
[2021-08-14 16:01] LABS: Vitamin B1 10 nmol/L (8-30)
[2021-08-14 19:17] LABS: Vitamin A 25 mcg/dL (38-98)
== END 2021-08-09 09:32 | disposition home or self-care (01) ==
LOC: HO.LAB 09:31
PROVIDERS: PCP Physician Assistant Medical; Visit Provider Surgery
DX: K91.2 Postsurgical malabsorption, not elsewhere classified (principal); Z90.3 Acquired absence of stomach [part of]
CPT/HCPCS: 36415; 80053; 80061; 82306; 82607; 82728; 82746; 83036; 83525; 83540; 83970; 84425; 84443; 84590; 84630; 85025; 86140

== ENCOUNTER → 2021-08-22 08:12 | Outpatient (BNVA) | payer OTHER, SELFPAY | PROVIDERS: PCP Physician Assistant Medical; Visit Provider Physician Assistant Surgical ==

== ENCOUNTER 2021-10-08 09:01 | Outpatient (REF) | payer OTHER, SELFPAY | END 2021-10-08 09:02 | disposition home or self-care (01) | LOC: HO.LAB 09:01 | PROVIDERS: PCP Physician Assistant Medical; Visit Provider Physician Assistant Surgical | DX: Z13.89 Encounter for screening for other disorder (principal) ==

== ENCOUNTER → 2021-12-05 09:01 | Outpatient (BNVA) | payer OTHER, SELFPAY | PROVIDERS: PCP Physician Assistant Medical; Visit Provider Physician Assistant Surgical | DX: E50.9 Vitamin A deficiency, unspecified (principal); E66.3 Overweight ==